=== PATIENT | female | born 1980 | race Caucasian/White ===

== ENCOUNTER 2019-10-22 14:22 | Outpatient (CLI) | payer BC ==
--- NOTE | 2019-10-22 15:00 | MMO ---
Bilateral MAMMO Bilat Screen [id number]. CLINICAL HISTORY: Patient is 39 years old and is seen for screening. The patient has no family history of breast cancer. The patient has no personal history of cancer. VIEWS: The views performed were: bilateral craniocaudal with tomosynthesis and bilateral mediolateral oblique with tomosynthesis. This study has been interpreted with the assistance of computer-aided detection. MAMMOGRAM FINDINGS: There are scattered fibroglandular densities. Cluster of microcalcifications outer upper left breast. Recommend mag views. In the right breast, there are no suspicious masses, calcifications or areas of architectural distortion. IMPRESSION: FINDING IN THE LEFT BREAST REQUIRES ADDITIONAL EVALUATION. ADDITIONAL IMAGING. THE RESULTS OF THIS EXAM WERE SENT TO THE PATIENT. ACR BI-RADS Category 0 - Incomplete: Need additional imaging evaluation. [facility] will notify the patient of the need for additional imaging services. MAMMOGRAPHY NOTE: 1. A negative mammogram report should not delay a biopsy if a dominant of clinically suspicious mass is present. 2. Approximately 10% to 15% of breast cancers are not detected by mammography. 3. Adenosis and dense breasts may obscure an underlying neoplasm. Reported by: COREY BUTTS MD Electonically Signed: [id number]
== END 2019-10-22 14:23 | disposition home or self-care (01) ==
LOC: BICMAMMO 14:22
PROVIDERS: ATTEND Family Medicine
DX: Z12.31 Encounter for screening mammogram for malignant neoplasm of breast (principal)
CPT/HCPCS: 77063; 77067

== ENCOUNTER → 2019-11-05 | Day surgery (SDC) | payer BC ==
--- NOTE | 2019-11-05 08:14 | MMO ---
Stereotactic guided biopsy left breast Surgical specimen mammography left breast Left diagnostic mammogram post biopsy HISTORY: Abnormal mammogram. Microcalcifications indeterminate. FINDINGS: After explaining the procedure and answering all questions, the microcalcification cluster at the lateral aspect of the left breast was again visualized. Sterile technique, buffered local anesthesia, stereotactic guidance, and a lateral approach were used to carefully advance a 10-gauge vacuum-assisted needle to the microcalcification cluster. Position was confirmed with stereotactic imaging. A total of 9 vacuum assisted 10-gauge specimens were obtained. Surgical specimen mammography shows microcalcifications in the tissue. Needle removed and hemostasis obtained using direct pressure. Localization clip was placed in the biopsy bed under stereotactic guidance. Post procedure diagnostic mammogram shows most of the microcalcifications to have been removed. Local ization clip is in good position. Patient tolerated the procedure well and was dismissed in good condition. IMPRESSION : Technically successful stereotactic guided biopsy left breast microcalcifications. Pathology is pendi ng.
--- NOTE | 2019-11-09 11:12 | MMO ---
Addendum: Pathology results are now available and describe sclerosing adenosis and florid epithelial hyperplasi a. No atypia. Microcalcifications are present. This correlates with the imaging findings. Results were discussed with the patient by telephone. She has had no unexpected difficulties with the biopsy site and understands that 6 month follow-up left unilateral mammography would be appropriate to evaluate for stability.
== END ==
LOC: MAMMO 07:10
PROVIDERS: ATTEND Family Medicine
PROC: 0H9U3ZX Drainage of Left Breast, Percutaneous Approach, Diagnostic (ICD-10-PCS; principal; 2019-11-05)
DX: N60.22 Fibroadenosis of left breast (principal); R92.0 Mammographic microcalcification found on diagnostic imaging of breast
CPT/HCPCS: 19081; 76098; 88305

== ENCOUNTER 2020-02-03 12:41 | Outpatient (CLI) | payer BC ==
--- NOTE | 2020-02-03 13:46 | RAD ---
XR Chest Pa Lat STANDARD HISTORY: Preoperative evaluation COMPARISON: None FINDINGS: The heart size is normal. The lungs are well expanded without focal areas of consolidation, pneumothorax or pleural effusions. IMPRESSION: No radiographic evidence of acute cardiopulmonary process.
== END 2020-02-03 12:42 | disposition home or self-care (01) ==
LOC: BICRAD 12:41
DX: Z01.818 Encounter for other preprocedural examination (principal)
CPT/HCPCS: 71046